=== PATIENT | female | born 1985 | race African-American/Black ===

== ENCOUNTER 2016-06-15 22:07 | Observation (INO) | payer MEDICAID ==
[~2016-06-15] VITALS: Ht 154.9 cm; Wt 69.4 kg
[2016-06-15 23:07] LABS: CLARITY URINE CLEAR (CLEAR); COLOR URINE YELLOW (YELLOW); GLUCOSE URINE NEGATIVE (NEGATIVE); KETONES URINE NEGATIVE (NEGATIVE); LEUKOCYTE ESTERASE URINE TRACE (NEGATIVE); NITRITE URINE NEGATIVE (NEGATIVE); OCCULT BLOOD URINE NEGATIVE (NEGATIVE); PH URINE 6.5 (4.5-8.0); PROTEIN URINE NEGATIVE (NEGATIVE); SPECIFIC GRAVITY URINE 1.007 (1.005-1.030)
[2016-06-15 23:22] LABS: RBC URINE NONE SEEN /hpf (0-2); SQUAMOUS EPITHELIAL CELL URINE 2+ /lpf (RARE/1+); WBC URINE 0-2 /hpf (0-2)
[2016-06-15 23:23] LABS: BACTERIA URINE 1+
[2016-06-15] MEDS ORDERED: CEFAZOLIN 2,000 MG in DEXT 5% WATER 100 ML IV SCH (23:43)
[2016-06-15] MEDS ORDERED: LACTATED RINGERS 1,000 ML IV SCH (23:45)
[2016-06-16] MEDS ORDERED: PREN-88 PO (01:51)
== END 2016-06-16 02:00 | disposition home or self-care (01) ==
LOC: L&D 22:07
PROVIDERS: ADMIT Obstetrics & Gynecology; ATTEND Obstetrics & Gynecology
DX: O23.42 Unspecified infection of urinary tract in pregnancy, second trimester (principal); Z3A.00 Weeks of gestation of pregnancy not specified
CPT/HCPCS: 81001; 96365; G0378; J0690; J7120; J7060

== ENCOUNTER 2016-06-22 16:17 | Observation (INO) | payer MEDICAID ==
[~2016-06-22] VITALS: Ht 154.9 cm; Wt 69.4 kg
[~2016-06-22 16:17] MED LIST: PREN-88 PO
[2016-06-22] MEDS ORDERED: ACETAMINOPHEN 500MG TABLET PO NR (17:30)
[2016-06-22 17:35] LABS: CLARITY URINE CLEAR (CLEAR); COLOR URINE YELLOW (YELLOW); GLUCOSE URINE NEGATIVE (NEGATIVE); KETONES URINE TRACE (NEGATIVE); LEUKOCYTE ESTERASE URINE NEGATIVE (NEGATIVE); NITRITE URINE NEGATIVE (NEGATIVE); OCCULT BLOOD URINE NEGATIVE (NEGATIVE); PROTEIN URINE NEGATIVE (NEGATIVE); SPECIFIC GRAVITY URINE 1.022 (1.005-1.030); UROBILINOGEN URINE 0.2 E.U./dL (0.2-1.0)
== END 2016-06-22 18:40 | disposition home or self-care (01) ==
LOC: L&D 16:17
PROVIDERS: ADMIT Specialist; ATTEND Specialist
DX: O26.892 Other specified pregnancy related conditions, second trimester (principal); R10.30 Lower abdominal pain, unspecified; Z3A.23 23 weeks gestation of pregnancy
CPT/HCPCS: 81003; 87210; 99281; G0378

== ENCOUNTER 2016-07-15 20:56 | Observation (INO) | payer MEDICAID ==
[~2016-07-15] VITALS: Ht 154.9 cm; Wt 72.6 kg
[2016-07-15 21:46] LABS: CLARITY URINE CLOUDY (CLEAR); COLOR URINE YELLOW (YELLOW); GLUCOSE URINE NEGATIVE (NEGATIVE); KETONES URINE NEGATIVE (NEGATIVE); LEUKOCYTE ESTERASE URINE 2+ (NEGATIVE); NITRITE URINE NEGATIVE (NEGATIVE); OCCULT BLOOD URINE NEGATIVE (NEGATIVE); PROTEIN URINE NEGATIVE (NEGATIVE)
[2016-07-15] MEDS ORDERED: CEFAZOLIN 1000MG PREMIX 50 ML IV NR (22:32)
[2016-07-15] MEDS ORDERED: ACETAMINOPHEN 500MG TABLET PO NR (22:45)
[2016-07-15] MEDS ORDERED: LACTATED RINGERS 1,000 ML IV SCH (22:45)
[2016-07-22] MEDS ORDERED: PREN-88 PO (22:39)
== END 2016-07-15 23:55 | disposition home or self-care (01) ==
LOC: L&D 20:56
PROVIDERS: ADMIT Obstetrics & Gynecology; ATTEND Obstetrics & Gynecology
DX: O26.899 Other specified pregnancy related conditions, unspecified trimester (principal); R10.9 Unspecified abdominal pain; Z3A.00 Weeks of gestation of pregnancy not specified
CPT/HCPCS: 81001; 96365; 99281; G0378; J0690; J7120; 96360; 96366

== ENCOUNTER 2016-07-21 15:51 | Observation (INO) | payer MEDICAID ==
[~2016-07-21] VITALS: Ht 154.9 cm; Wt 72.6 kg
[2016-07-21 16:32] LABS: CLARITY URINE CLOUDY (CLEAR); COLOR URINE YELLOW (YELLOW); GLUCOSE URINE NEGATIVE (NEGATIVE); KETONES URINE NEGATIVE (NEGATIVE); LEUKOCYTE ESTERASE URINE 3+ (NEGATIVE); NITRITE URINE NEGATIVE (NEGATIVE); OCCULT BLOOD URINE NEGATIVE (NEGATIVE); PH URINE 6.5 (4.5-8.0); PROTEIN URINE NEGATIVE (NEGATIVE); SPECIFIC GRAVITY URINE 1.017 (1.005-1.030)
[2016-07-21] MEDS ORDERED: LACTATED RINGERS 1,000 ML IV SCH (17:00)
[2016-07-21] MEDS ORDERED: CEFAZOLIN 2,000 MG in DEXT 5% WATER 100 ML IV NR (17:30)
[2016-07-22] MEDS ORDERED: PREN-88 PO (22:39)
== END 2016-07-21 18:54 | disposition home or self-care (01) ==
LOC: L&D 15:51
PROVIDERS: ADMIT Obstetrics & Gynecology; ATTEND Obstetrics & Gynecology
DX: O26.899 Other specified pregnancy related conditions, unspecified trimester (principal); R10.2 Pelvic and perineal pain; K62.89 Other specified diseases of anus and rectum; Z3A.00 Weeks of gestation of pregnancy not specified
CPT/HCPCS: 81001; 96365; 99281; G0378; J0690; J7120; J7060

== ENCOUNTER 2016-07-22 23:10 | Emergency (ER) | payer MEDICAID ==
[~2016-07-22] VITALS: Ht 154.9 cm; Wt 73.0 kg
[2016-07-23] MEDS ORDERED: LIDOCAINE HCL 2% JELLY 5ML TOP ONE (03:30)
[2016-07-23 03:53] LABS: CLARITY URINE CLOUDY (CLEAR); COLOR URINE YELLOW (YELLOW); GLUCOSE URINE NEGATIVE (NEGATIVE); KETONES URINE NEGATIVE (NEGATIVE); LEUKOCYTE ESTERASE URINE 2+ (NEGATIVE); NITRITE URINE NEGATIVE (NEGATIVE); OCCULT BLOOD URINE NEGATIVE (NEGATIVE); PROTEIN URINE NEGATIVE (NEGATIVE); SPECIFIC GRAVITY URINE 1.019 (1.005-1.030)
[2016-07-23 04:57] VITALS: BP 93/59
== END 2016-07-23 05:59 | disposition home or self-care (01) ==
LOC: EDSTATUS 23:10 → ER 23:12
DX: O23.43 Unspecified infection of urinary tract in pregnancy, third trimester (principal); O26.893 Other specified pregnancy related conditions, third trimester; Z3A.28 28 weeks gestation of pregnancy; J45.909 Unspecified asthma, uncomplicated; Z88.1 Allergy status to other antibiotic agents; Z88.6 Allergy status to analgesic agent; K64.5 Perianal venous thrombosis
CPT/HCPCS: 81001; 87086; 99284; Z7610

== ENCOUNTER 2016-08-26 20:05 | Observation (INO) | payer MEDICAID ==
[~2016-08-26] VITALS: Ht 154.9 cm; Wt 75.3 kg
[2016-08-26] MEDS ORDERED: DEXT 5%/LACTATED RINGERS 1,000 ML IV SCH (20:55)
[2016-08-26 21:28] LABS: CLARITY URINE CLOUDY (CLEAR); COLOR URINE YELLOW (YELLOW); GLUCOSE URINE NEGATIVE (NEGATIVE); KETONES URINE NEGATIVE (NEGATIVE); LEUKOCYTE ESTERASE URINE 3+ (NEGATIVE); NITRITE URINE NEGATIVE (NEGATIVE); OCCULT BLOOD URINE NEGATIVE (NEGATIVE); PH URINE 6.5 (4.5-8.0); PROTEIN URINE NEGATIVE (NEGATIVE); SPECIFIC GRAVITY URINE 1.019 (1.005-1.030)
[2016-08-26 21:35] LABS: BASOPHILS % 0.4 % (0.0-2.0); EOSINOPHILS % 2.1 % (0.0-5.0); HEMATOCRIT. 27.9 % (36.0-48.0); HEMOGLOBIN. 9.5 g/dL (12.0-16.0); LYMPHOCYTES % 13.7 % (20.0-50.0); MEAN CORPUSCULAR HEMOGLOBIN 29.2 pg (28.0-32.0); MEAN CORPUSCULAR VOLUME 85.7 fL (81.0-99.0); MEAN PLATELET VOLUME 7.7 fl (7.4-10.4); MONOCYTES % 6.4 % (2.0-8.0); NEUTROPHILS % 77.4 % (40.0-76.0); PLATELET 317 x1000/uL (130-400); RED BLOOD CELL COUNT 3.26 mill/uL (4.2-5.4); RED CELL DISTRIBUTION WIDTH 13.6 % (11.6-14.6)
[2016-08-26] MEDS ORDERED: ALBU05 NEB (21:36)
[2016-08-26] MEDS ORDERED: CEFAZOLIN 2,000 MG in DEXT 5% WATER 100 ML IV NR (23:00)
== END 2016-08-26 23:15 | disposition home or self-care (01) ==
LOC: INTOOBSV 20:05 → L&D 20:05
PROVIDERS: ADMIT Obstetrics & Gynecology; ATTEND Obstetrics & Gynecology
DX: O26.893 Other specified pregnancy related conditions, third trimester (principal); R10.30 Lower abdominal pain, unspecified; R10.2 Pelvic and perineal pain; R51 Headache; R42 Dizziness and giddiness; Z3A.33 33 weeks gestation of pregnancy
CPT/HCPCS: 36415; 80051; 81001; 82731; 85025; 96365; G0378; J0690; 96361; J7060; J7120

== ENCOUNTER 2016-09-10 19:35 | Observation (INO) | payer MEDICAID ==
[~2016-09-10] VITALS: Ht 154.9 cm; Wt 75.7 kg
[~2016-09-10 19:35] MED LIST changes: +ALBU05 NEB
[2016-09-10 20:40] LABS: CLARITY URINE CLOUDY (CLEAR); COLOR URINE DARK YELLOW (YELLOW); GLUCOSE URINE NEGATIVE (NEGATIVE); KETONES URINE TRACE (NEGATIVE); LEUKOCYTE ESTERASE URINE 2+ (NEGATIVE); NITRITE URINE NEGATIVE (NEGATIVE); OCCULT BLOOD URINE NEGATIVE (NEGATIVE); PH URINE 5.5 (4.5-8.0); PROTEIN URINE 1+ (NEGATIVE); SPECIFIC GRAVITY URINE 1.033 (1.005-1.030)
[2016-09-10] MEDS ORDERED: DEXT 5%/LACTATED RINGERS 1,000 ML IV ONE (21:30)
[2016-09-10] MEDS ORDERED: CEFAZOLIN 2,000 MG in DEXT 5% WATER 100 ML IV SCH (23:00)
== END 2016-09-10 23:15 | disposition home or self-care (01) ==
LOC: L&D 19:35
PROVIDERS: ADMIT Obstetrics & Gynecology; ATTEND Obstetrics & Gynecology
DX: O26.893 Other specified pregnancy related conditions, third trimester (principal); R10.9 Unspecified abdominal pain; M79.642 Pain in left hand; Z3A.29 29 weeks gestation of pregnancy
CPT/HCPCS: 81001; 96365; 99281; G0378; J0690; 96360; 96361; J7060

== ENCOUNTER 2016-10-01 03:51 | Observation (INO) | payer MEDICAID ==
[~2016-10-01] VITALS: Ht 157.5 cm; Wt 77.6 kg
== END 2016-10-01 06:35 | disposition home or self-care (01) ==
LOC: L&D 03:51
PROVIDERS: ADMIT Obstetrics & Gynecology; ATTEND Obstetrics & Gynecology
DX: O62.9 Abnormality of forces of labor, unspecified (principal); Z3A.37 37 weeks gestation of pregnancy
CPT/HCPCS: 99281; G0378; J7120